=== PATIENT | male | born 1995 | race Caucasian/White ===

== ENCOUNTER 2017-01-21 22:47 | Emergency (ER) | payer OTHER ==
[~2017-01-21] VITALS: Ht 182.9 cm; Wt 117.9 kg
[~2017-01-21 22:47] MED LIST: ALBUTEROL0.09 MG/A1 INH; ANTIPYRINE AND15 ML OTIC; BACTRIM DS 8001 TAB PO; BENZONATATE200 MG PO; CEPHALEXIN500 MG PO; IBUPROFEN800 M1 PO; KEFLEX250 M1 PO; NASONEX0.05 MG/Ac NAS; ROBITUSSIN W/CO10 ML PO; TESSALON PERLE100 MG PO; TORADOL10 MG PO; ZITHROMAX Z-PA250 M1 PO; ZOFRAN4 M1 PO
--- NOTE | 2017-01-21 23:02 | ED HEAD/FACIAL INJ COMPLAINT ---
History of Present Illness General Chief Complaint: Facial or Head Injury Stated Complaint: NECK PAIN, S/P HEAD STRIKE, -LOC Source: patient Exam Limitations: no limitations Vital Signs & Intake/Output Vital Signs & Intake/Output Vital Signs Date Time Temp Pulse Resp B/P B/P Pulse O2 O2 Flow FiO2 Mean Ox Delivery Rate 01/217 99.2 101 18 135/68 97 Room Air Allergies Coded Allergies: NO KNOWN ALLERGIES (02/03/16) Reconcile Medications Cephalexin (Keflex) 250 MG CAPSULE 1 TAB PO 4 TIMES/DAY CELLULITIS Ibuprofen 800 MG TABLET 1 TAB PO TID PRN pain Triage Note: RECEIVED 21 YO MALE HIT HEAD AGAINST BOARDS PLAYING HOCKEY ABOUT 9 PM TONITE. PT DENIES LOC. PT REPORTS PAIN TO BACK OF NECK AND HEAD. NO C/O NAUSEA, LIGHTHEADEDNESS OR DIZZINESS. + HELMET ON. Triage Nurses Notes Reviewed? yes Onset: Abrupt Severity: moderate Location: occipital Method of Injury: direct blow Loss of Consciousness: no loss of consciousness Associated Symptoms: neck pain HPI: 21 yo gentleman presents with occipital headache and neck pain after playing hockey. He shares that he got slammed against the boards, hitting the back of his head and neck. He did not lose consciousness. He is otherwise well. Past History Travel History Traveled to [place] past 21 day No Medical History Any Pertinent Medical History? 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 No Review of Systems Review of Systems Constitutional: Reports: no symptoms. EENTM: Reports: no symptoms. Respiratory: Reports: no symptoms. Cardiovascular: Reports: no symptoms. GI: Reports: no symptoms. Genitourinary: Reports: no symptoms. Musculoskeletal: Reports: no symptoms. Skin: Reports: no symptoms. Neurological/Psychological: Reports: no symptoms. Hematologic/Endocrine: Reports: no symptoms. Immunologic/Allergic: Reports: no symptoms. All Other Systems: Reviewed and Negative Physical Exam Physical Exam General Appearance: well developed/nourished, mild distress Head: atraumatic, normal appearance Eyes: Bilateral: PERRL, EOMI. Ears, Nose, Throat: normal pharynx, normal ENT inspection, hearing grossly normal Neck: normal inspection, supple, focal tenderness, mild, in c1/2/3 region. Respiratory: normal breath sounds Cardiovascular: regular rate/rhythm Gastrointestinal: soft, non-tender Back: normal inspection Extremities: normal inspection, normal range of motion, no edema Psychiatric: awake, alert, oriented x 3 Cranial Nerves: normal hearing, normal speech, PERRL Coordination/Gait: normal gait Motor/Sensory: no motor/sensory deficits Skin: intact, normal color, warm/dry Lymphatic: no anterior cervical michael Progress Differential Diagnosis: c-spine injury, globe injury, ICH Plan of Care: concussion vs ich vs fx. Diagnostic Imaging: Viewed by Me: CT Scan. Discussed w/RAD: CT Scan. Radiology Impression: HEAD/CERVICAL CT... NO ACUTE DISEASE Comments: PATIENT: SEBASTIAN SELBY PRESENT AGE: 21 PATIENT ACCOUNT NO: [id number] : 96 LOCATION: [facility] ORDERING PHYSICIAN: TIFFANY MACEDO MD SERVICE DATE: 01/21/17 EXAM TYPE: CAT - CT CERV SPINE WO IV CONTRAST; CT HEAD WO IV CONTRAST EXAMINATION: CT HEAD WITHOUT CONTRAST CT CERVICAL SPINE WITHOUT CONTRAST CLINICAL INFORMATION: Head injury. Neck pain. COMPARISON: CT of head 04/18/2007 TECHNIQUE: Imaging was performed from the skull base to vertex without intravenous administration of contrast. In addition, helical noncontrast CT imaging was acquired through the cervical spine and source images were reviewed along with axial reconstructions and sagittal and coronal MPRs. DLP: 968.3 mGy-cm FINDINGS: HEAD: No intracranial mass, hemorrhage, or midline shift is visualized. The ventricles and sulci are age-appropriate. No extra-axial collections are identified. The paranasal sinuses and mastoid air cells are well aerated. CERVICAL SPINE: There is no evidence of acute cervical spine fracture. Vertebral bodies remain normal in height, intervertebral disc spaces are preserved, and alignment is anatomic. No pre- or paravertebral soft tissue abnormality is identified. Limited assessment of the lung apices is unremarkable. IMPRESSION: 1. No acute intracranial pathology. 2. No CT evidence of acute cervical spine fracture or traumatic subluxation DICTATED BY: AMBER SHANKAR MD DATE/TIME DICTATED:01/21/172326 CRANE MAN:HAZEL DATE/TIME TRANSCRIBED:01/21/17 1306 CONFIDENTIAL, DO NOT COPY WITHOUT APPROPRIATE AUTHORIZATION. <Electronically signed in Other Vendor System> SIGNED BY: AMBER SHANKAR MD 01/21/17 4831 Departure Departure Disposition: HOME OR SELF CARE Condition: Stable Clinical Impression Primary Impression: Head injury Secondary Impressions: Concussion Referrals: ROBERTA GLEZ,NATE Garcia (PCP/Family) Departure Forms: Customer Survey General Discharge Information Comments benign exam, negative ct scans... discusssed with family... close follow upadvised.
--- NOTE | 2017-01-21 23:35 | CT SCAN REPORT ---
EXAMINATION: CT HEAD WITHOUT CONTRAST CT CERVICAL SPINE WITHOUT CONTRAST CLINICAL INFORMATION: Head injury. Neck pain. COMPARISON: CT of head 04/18/2007 TECHNIQUE: Imaging was performed from the skull base to vertex without intravenous administration of contrast. In addition, helical noncontrast CT imaging was acquired through the cervical spine and source images were reviewed along with axial reconstructions and sagittal and coronal MPRs. DLP: 968.3 mGy-cm FINDINGS: HEAD: No intracranial mass, hemorrhage, or midline shift is visualized. The ventricles and sulci are age-appropriate. No extra-axial collections are identified. The paranasal sinuses and mastoid air cells are well aerated. CERVICAL SPINE: There is no evidence of acute cervical spine fracture. Vertebral bodies remain normal in height, intervertebral disc spaces are preserved, and alignment is anatomic. No pre- or paravertebral soft tissue abnormality is identified. Limited assessment of the lung apices is unremarkable. IMPRESSION: 1. No acute intracranial pathology. 2. No CT evidence of acute cervical spine fracture or traumatic subluxation
[2017-01-22 00:09] VITALS: BP 129/65
== END 2017-01-22 00:09 ==
LOC: ERH 22:47
DX: S09.90XA Unspecified injury of head, initial encounter (principal); S06.0X0A Concussion without loss of consciousness, initial encounter; W51.XXXA Accidental striking against or bumped into by another person, initial encounter; Y93.22 Activity, ice hockey; Y92.9 Unspecified place or not applicable

== ENCOUNTER 2017-11-25 22:59 | Emergency (ER) | payer OTHER ==
[~2017-11-25] VITALS: Ht 182.9 cm; Wt 127.0 kg
[2017-11-25 23:08] VITALS: BP 138/85
[2017-11-25] MEDS ORDERED: AUGMENTIN 875-1 EACH PO (23:52)
--- NOTE | 2017-11-25 23:53 | ED UPPER/LOWER EXTREMITY COMPL ---
History of Present Illness General Chief Complaint: Upper Extremity Problem Stated Complaint: "I HURT MY ARM" LEFT ELBOW Source: patient Exam Limitations: no limitations Vital Signs & Intake/Output Vital Signs & Intake/Output Vital Signs Date Time Temp Pulse Resp B/P B/P Pulse O2 O2 Flow FiO2 Mean Ox Delivery Rate 11/25 2308 98.6 100 17 138/85 97 Room Air ED Intake and Output 11/26 0000 11/25 1200 Intake Total 0 Output Total Balance 0 Intake, Oral 0 Patient 280 lb Weight Weight Estimated Measurement Method Allergies Coded Allergies: NO KNOWN ALLERGIES (02/03/16) Reconcile Medications Amoxicillin/Potassium Clav (Augmentin 875-125 Tablet) 875 MG-125 MG TABLET 1 TAB PO BID cellulitis Cephalexin (Keflex) 250 MG CAPSULE 1 TAB PO 4 TIMES/DAY CELLULITIS Ibuprofen 800 MG TABLET 1 TAB PO TID PRN pain Triage Note: RECEIVED 22 YO MALE C/O INJURED LEFT ELBOW AREA 2 WEEKS AGO DURING A HOCKEY GAME WITH SMALL 1/2 INCH DEEP LAC. PT REPORTS IN THE 24 HOURS, LEFT ELBOW IS WARM TO TOUCH, PINK WITH SOME DRAINAGE TO WOUND. Triage Nurses Notes Reviewed? yes HPI: Patient is a 22-year-old male presenting to the emergency department with chief complaint of left elbow pain, redness and swelling been going on for the past 2- 3 days. He reports that he cut his elbow about 2 weeks ago while playing hockey. It was healing up well and noticed the redness a couple days ago. Has been taking [id number] Tylenol without relief. Decided to come in for evaluation, concerned for infection. No fevers or chills nausea or vomiting. Patient up-to-date with tetanus. (Cecilia Nuñez) Past History Travel History Traveled to [place] past 21 day No Medical History Any Pertinent Medical History? 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 No (Cecilia Nuñez) Review of Systems Review of Systems Constitutional: Reports: no symptoms. Comments Review of systems: See HPI, All other systems negative. Constitutional, no chills fever or weight loss HEENT: No visual changes no sore throat no congestion Cardiovascular: No chest pain ,palpitation Skin, no jaundice Respiratory: No dyspnea cough sputum or hemoptysis GI: No nausea no vomiting : No dysuria No hematuria Muscle skeletal: no back pain, no neck pain, Neurologic: No numbness Immunology: Up-to-date with immunizations including tetanus. (Cecilia Nuñez) Physical Exam Physical Exam General Appearance: well developed/nourished, no apparent distress, alert, awake , comfortable Comments: Well-developed well-nourished person in no acute distress HEENT: Atraumatic, normocephalic. Neck: Normal inspection Cardiovascular: Radial pulses are 2+ bilaterally. Respiratory: No respiratory distress Extremity: Mild edema noted over the left elbow area, full range of motion of left elbow without pain or difficulty. Old appearing abrasion approximately 2 cm in size noted just distal to the olecranon, midline. Mild surrounding erythema, blanchable approximately 6-8 cm. Mildly warm to palpation in this area. Full range of motion of left wrist, left hand. Neuro: Alert oriented x3, motor sensory normal Skin: See extremity exam. Otherwise exposed skin is unremarkable. Psych: Mood and affect is normal, memory and judgment is normal. (Cecilia Nuñez) Progress Differential Diagnosis: CELLULITIS, SPRAIN, SEPTIC ARTHRITIS, SEPTIC JOINT Plan of Care: Current Medications Sig/He Start time Last Medication Dose Stop Time Status Admin Amoxicillin/ 1,000 MG ONCE ONE 11/25 2344 UNVr Clavulanate Potassium 11/25 2345 (Augmentin) Patient has been afebrile, well-appearing. Appears to be localized cellulitis is patient also range of motion of left elbow. Educated on signs and symptoms return. Patient will follow-up with his primary care physician on Thursday. (Cecilia Nuñez) Departure Departure Time of Disposition: 2349 Disposition: HOME OR SELF CARE Condition: Stable Clinical Impression Primary Impression: Cellulitis Qualifiers: Site of cellulitis: extremity Site of cellulitis of extremity: upper extremity Laterality: left Qualified Code: L03.114 - Cellulitis of left upper limb Referrals: Benji GLEZ,Duke Garcia (PCP/Family) Additional Instructions: Follow-up with the primary care physician on Thursday for a wound check. Return to the emergency Department if he notices any increased redness pain fevers or concerns. Continue Augmentin tomorrow. Take [id number] anti- inflammatories as directed. 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 I have also reviewed all the pertinent lab results and diagnostic results. I agree with the findings and the plan of care as documented in the PA's/TRACK REPAIR SUPERVISOR's documentation. x I have reviewed the ED Record and agree with the PA's/TRACK REPAIR SUPERVISOR's documentation. [] Additions or exceptions (if any) to the PAs/TRACK REPAIR SUPERVISOR's note and plan are summarized below: [] (Enedelia GLEZ,Marco)
== END 2017-11-25 23:57 ==
LOC: ERH 22:59
DX: L03.114 Cellulitis of left upper limb (principal)
CPT/HCPCS: J3490

== ENCOUNTER 2017-11-26 10:09 | Emergency (ER) | payer OTHER ==
[~2017-11-26] VITALS: Ht 182.9 cm; Wt 127.0 kg
[~2017-11-26 10:09] MED LIST changes: +AUGMENTIN 875-1 EACH PO
--- NOTE | 2017-11-26 11:25 | ED SKIN/ALLERGY COMPLAINT ---
History of Present Illness General Chief Complaint: Suture Removal/Wound Recheck Stated Complaint: CELLULITIS CHECK Source: patient, family, old records Exam Limitations: no limitations Vital Signs & Intake/Output Vital Signs & Intake/Output Vital Signs Date Time Temp Pulse Resp B/P B/P Pulse O2 O2 Flow FiO2 Mean Ox Delivery Rate 11/26 1014 96.1 84 18 133/81 99 Room Air Allergies Coded Allergies: NO KNOWN ALLERGIES (02/03/16) Reconcile Medications Amoxicillin/Potassium Clav (Augmentin 875-125 Tablet) 875 MG-125 MG TABLET 1 TAB PO BID cellulitis Triage Note: HERE FOR RE-CHECK OF CELLULITIS TO LEFT ELBOW, SEEN HERE YESTERDAY, WAS PUT ON ABX, C/O WORSENING PAIN, REDNESS AND SWELLING. Triage Nurses Notes Reviewed? yes HPI: Patient was seen here yesterday for cellulitis of his left elbow. Patient was given a dose of Augmentin and then sent home and prescription was sent in to the pharmacy. When the family went to [facility] the prescription they told the pharmacist that the redness was much worse so they were advised to come back to the emergency department. Patient states that there is a throbbing pain that increases with movement of his elbow. There are no fevers or chills. He rates the pain at 6 out of 10. Patient has no other complaints. Past History Travel History Traveled to [place] past 21 day No Medical History Any Pertinent Medical History? 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 No Review of Systems Review of Systems Constitutional: Reports: no symptoms. Respiratory: Reports: no symptoms. Cardiovascular: Reports: no symptoms. Musculoskeletal: Reports: see HPI. Skin: Reports: see HPI. Neurological/Psychological: Reports: no symptoms. Immunologic/Allergic: Reports: no symptoms. Physical Exam Physical Exam General Appearance: well developed/nourished, alert, awake Eyes: Bilateral: PERRL, EOMI. Neck: normal inspection, supple, full range of motion Respiratory: normal breath sounds, chest non-tender, no respiratory distress, lungs clear Cardiovascular: regular rate/rhythm, normal peripheral pulses Extremities: REDNESS IS DOWN BELOW THE DRAWN LINE. nO AXILLARY ADENOPATHY. Skin: ERYTHMEA Progress Differential Diagnosis: abscess/cellulitis Plan of Care: Orders Procedure Date/time Status COMPREHENSIVE METABOLIC PANEL 11/26 110 Complete CBC WITHOUT DIFFERENTIAL 11/26 1106 Complete Laboratory Tests 11/26/17 1210: Anion Gap 11, Estimated GFR > 60, BUN/Creatinine Ratio 18.9, Glucose 108 H, Calcium 9.2, Total Bilirubin 0.9, AST 24, ALT 43, Alkaline Phosphatase 61, Total Protein 6.8, Albumin 4.0, Globulin 2.8, Albumin/Globulin Ratio 1.4, CBC w Diff NO MAN DIFF REQ, RBC 4.47 L, MCV 83.8, MCH 28.9, MCHC 34.5, RDW 14.2, MPV 8.2, Gran % 72.8, Lymphocytes % 18.2 L, Monocytes % 8.0, Eosinophils % 0.6, Basophils % 0.4, Absolute Granulocytes 6.4, Absolute Lymphocytes 1.6, Absolute Monocytes 0.7 H, Absolute Eosinophils 0.1, Absolute Basophils 0 Departure Departure Disposition: HOME OR SELF CARE Condition: Stable Clinical Impression Primary Impression: Cellulitis Referrals: Benji GLEZ,Duke Garcia (PCP/Family) Additional Instructions: CONTINUE THE AUGMENTIN TWICE A DAY RETURN IF REDNESS SPREADS TOMORROW OR SOONER FOR ANY CONCERNS Departure Forms: Customer Survey General Discharge Information
[2017-11-26 12:23] LABS: ABSOLUTE BASOPHIL COUNT 0 /CUMM (0.0-0.2); ABSOLUTE EOSINOPHIL COUNT 0.1 /CUMM (0.0-0.7); ABSOLUTE GRANULOCYTE CT 6.4 /CUMM (1.4-6.5); ABSOLUTE LYMPH COUNT 1.6 /CUMM (1.2-3.4); ABSOLUTE MONOCYTE COUNT 0.7 /CUMM (0.10-0.60); BASOPHIL % 0.4 % (0.0-2.0); EOSINOPHIL % 0.6 % (0-5); GRANULOCYTE % 72.8 % (42.2-75.2); HEMATOCRIT 37.5 % (42-52); MEAN CORPUSCULAR HGB 28.9 PG (27.0-31.0); MEAN CORPUSCULAR HGB CONC 34.5 G/DL (33.0-37.0); MEAN CORPUSCULAR VOLUME 83.8 FL (80.0-94.0); MEAN PLATELET VOLUME 8.2 FL (7.4-10.4); PLATELET COUNT 194 /CUMM (130-400); RBC DISTRIBUTION WIDTH 14.2 % (11.5-14.5); RED BLOOD CELL CT 4.47 /CUMM (4.70-6.10); WHITE BLOOD CELL COUNT 8.8 /CUMM (4.8-10.8)
[2017-11-26 13:39] VITALS: BP 110/64
== END 2017-11-26 13:42 ==
LOC: ERH 10:09
PROVIDERS: Emergency Medicine
DX: L03.114 Cellulitis of left upper limb (principal)
CPT/HCPCS: 99281